=== PATIENT | female | born 1940 | race Asian ===

== ENCOUNTER 2023-07-02 11:18 | Emergency (ER) | payer OTHER ==
[~2023-07-02] VITALS: Ht 160 cm; Wt 68.0 kg
[2023-07-02 11:23] VITALS: BP 165/102; PULSE 78; RESP 16; TEMP 98.1; O2SAT 97
[2023-07-02 18:55] VITALS: BP 149/89; PULSE 65; RESP 19; O2SAT 100
== END 2023-07-02 18:56 | disposition home or self-care (01) ==
LOC: MED 11:18
DX: S00.83XA Contusion of other part of head, initial encounter (principal); S80.01XA Contusion of right knee, initial encounter; M19.90 Unspecified osteoarthritis, unspecified site; E78.5 Hyperlipidemia, unspecified; W01.198A Fall on same level from slipping, tripping and stumbling with subsequent striking against other object, initial encounter; Y92.89 Other specified places as the place of occurrence of the external cause; Y93.89 Activity, other specified; Y99.8 Other external cause status
CPT/HCPCS: 70450; 73562; 93005; 99285